=== PATIENT | male | born 1995 | race Hispanic/Latino ===

== ENCOUNTER 2017-06-10 16:59 | Emergency (ER) | payer SELFPAY ==
[2017-06-10] MEDS ORDERED: SODIUM CHLORIDE 0.9% 1000ML 1,000 ML IV ONE (17:34)
[2017-06-10 17:57] LABS: BASOPHILS % (AUTO) 0.6 % (0.0-5.0); EOSINOPHILS % (AUTO) 2.6 % (0.0-8.0); HEMATOCRIT 46.4 % (42-54); LYMPHOCYTES % (AUTO) 36.9 % (21.0-51.0); MEAN CORPUSCULAR HEMOGLOBIN 32.8 pg (27.0-33.0); MEAN CORPUSCULAR HGB CONC 35.6 g/dL (32.0-36.0); MEAN CORPUSCULAR VOLUME 92.1 fL (79-99); MONOCYTES % (AUTO) 10.5 % (3.0-13.0); NEUTROPHILS % (AUTO) 49.4 % (40.0-77.0); NUCLEATED RED BLOOD CELLS 0.1 % (0.0-0.19); PLATELET COUNT (AUTO) 283 K/uL (130-400); RED BLOOD CELL COUNT(AUTO) 5.04 MIL/uL (4.50-6.20); RED CELL DISTRIBUTION WIDTH 12.6 % (11.0-15.5); WHITE BLOOD COUNT (AUTO) 5.4 K/uL (4.8-10.8)
[2017-06-10 18:07] LABS: CREATININE 1.2 mg/dL (0.5-1.5); POTASSIUM 4.5 mmol/L (3.5-5.1)
[2017-06-10 18:12] LABS: ALBUMIN 4.1 g/dL (3.5-5.0); BILIRUBIN,TOTAL 0.8 mg/dL (0.2-1.0); TOTAL PROTEIN, SERUM 7.6 g/dL (6.0-8.3)
== END 2017-06-10 19:10 | disposition home or self-care (01) ==
LOC: EDH 16:59
DX: E86.0 Dehydration (principal); G44.209 Tension-type headache, unspecified, not intractable; Z72.0 Tobacco use
CPT/HCPCS: 36415; 70450; 72125; 80053; 85025; 96360; 99285; J7030

== ENCOUNTER 2018-11-06 13:39 | Emergency (ER) | payer SELFPAY | END 2018-11-06 14:10 | disposition home or self-care (01) | LOC: EDH 13:39 | DX: G44.209 Tension-type headache, unspecified, not intractable (principal); R53.83 Other fatigue; Z72.0 Tobacco use | CPT/HCPCS: 99281 ==